=== PATIENT | male | born 1945 | race Caucasian/White ===

== ENCOUNTER → 2021-08-17 09:46 | Outpatient (BNVA) | payer MEDICARE, SELFPAY | PROVIDERS: PCP Family Medicine; Visit Provider Urology | DX: N40.1 Benign prostatic hyperplasia with lower urinary tract symptoms (principal); R35.1 Nocturia; R31.21 Asymptomatic microscopic hematuria; R39.12 Poor urinary stream | CPT/HCPCS: 51798; 99212 ==

== ENCOUNTER 2022-08-09 10:24 | Outpatient (REF) | payer MEDICARE, SELFPAY ==
[2022-08-09 14:21] LABS: Prostate Specific Antigen 0.78 ng/mL (<0.05-4.0)
== END 2022-08-09 10:25 | disposition home or self-care (01) ==
LOC: HO.10HDL 10:24
PROVIDERS: Visit Provider Urology
DX: Z12.5 Encounter for screening for malignant neoplasm of prostate (principal); N40.1 Benign prostatic hyperplasia with lower urinary tract symptoms; N13.8 Other obstructive and reflux uropathy
CPT/HCPCS: 36415; 84153

== ENCOUNTER → 2022-08-16 09:49 | Outpatient (BNVA) | payer MEDICARE, SELFPAY | PROVIDERS: PCP Family Medicine; Visit Provider Urology | DX: N40.1 Benign prostatic hyperplasia with lower urinary tract symptoms (principal); R39.12 Poor urinary stream; R31.29 Other microscopic hematuria | CPT/HCPCS: 99212 ==

== ENCOUNTER 2023-08-01 14:27 | Outpatient (REF) | payer MEDICARE, SELFPAY ==
[2023-08-01 16:41] LABS: Prostate Specific Antigen 1.11 ng/mL (<0.05-4.0)
== END 2023-08-01 14:28 | disposition home or self-care (01) ==
LOC: HO.LAB 14:27
PROVIDERS: PCP Family Medicine; Visit Provider Urology
DX: Z12.5 Encounter for screening for malignant neoplasm of prostate (principal); N40.0 Benign prostatic hyperplasia without lower urinary tract symptoms
CPT/HCPCS: 36415; 84153

== ENCOUNTER 2023-08-22 10:35 | Outpatient (AMB) | payer MEDICARE, SELFPAY ==
--- NOTE | 2023-08-22 10:51 | MHC.OFFVIS ---
Intake Intake Visit Reasons: 1Y PSA(set) Intake Note: pt here for followup meds - [facility]asteride [facility] - NKA PVR - 40 mL Allergies No Known Allergies Allergy (Verified 08/22/23 11:04) Medication List - Last Reconciled 08/22/23 by Brian Weir MD atorvastatin 40 mg PO DAILY calcium carbonate 600 mg PO BID cholecalciferol (vitamin D3) (Vitamin D3) 10 mcg PO DAILY diltiazem HCl 180 mg PO DAILY finasteride 5 mg PO DAILY 90 days metoprolol succinate ER 50 mg PO DAILY rivaroxaban (Xarelto) 15 mg PO DAILY spironolactone 25 mg PO DAILY HPI HPI Comments History of Present Illness Details Sohail ROLLE is a very pleasant male. He is a patient of Dr Alexandre. He is seen for the following urologic conditions. - Lower urinary tract symptoms - microscopic hematuria Prior HIWOT right base nodule PVR 40 cc Slight rise in PSA Continue 12 month review Lower Urinary Tract Symptoms:? Continues with improved urinary parameters Minimal nocturia Effective stream HIWOT 3+ ? Current visit is for?further evaluation of, predominate obstructive symptoms.? Current treatment includes?finasteride ? Prostate Symptom Score?Moderate (9-19), Bother 3.? Symptoms include?incomplete emptying, weak stream.? PSA?04/19 4.5, 08/21 1.3, 08/22 0.8, 08/23 1.1 ? Prostate volume?100 g on ultrasound.? Testing at next visit will include?bladder scan.? Microscopic Hematuria:? On combination therapy for prostate. Has noticed better stream. ? Microscopic hematuria was diagnosed during?routine UA.? They are here for the?Six months review of BPH.? Since the last visit the patient has?has not noticed gross hematuria, does not test positive for microscopic hematuria.? Relevant medical history for?anticoagulation therapy - xarelto.? Associated symptoms include? Radiographic imaging:?none completed.? Radiology report?09/17 US 100cc prostate.? Other investigations?09/17 , cytology, normal.? Therapeutic plan?follow in 12 months with appropriate investigations.? [facility] Medical History Hyperlipidemia TONI (obstructive sleep apnea) Chronic kidney disease Atrial fibrillation Urinary tract infection without hematuria Weak urinary stream Nocturia Enlarged prostate Asymptomatic microscopic hematuria Review of Systems Const Denies chills and Denies fever(s) Card Reports no additional complaints and Denies syncope Resp Denies cough GI Denies abdominal pain and Denies heartburn Reports as per HPI and Denies change in libido Neuro Denies syncope Psych Denies change in libido Endo Denies change in libido Physical Exam Const General: cooperative, healthy appearing, comfortable and no acute distress Orientation/consciousness: patient oriented x3 HEENT Face and sinus: Yes normal facial exam Mouth: moist mucous membranes Neck Neck: Yes normal visual inspection, Yes full ROM and Yes trachea midline Chest Chest palpation & inspection: normal inspection of the chest Resp Effort & Inspection: normal respiratory effort, able to speak in complete sentences and no respiratory distress GI Inspection: Yes normal to inspection Back/Spine/Pelvis Cervical Spine: normal cervical lordosis Thoracic/Lumbar Spine: thoracic and lumbar spine normal to inspection Skin General skin exam: no rashes or lesions noted Neuro General: patient oriented x3, gait normal, tone normal and moves all extremities Extrem General: Yes normal to inspection and Yes capillary refill normal Office Procedures Post Void Residual Post Residual Void Post Void Residual (PVR): 40 [id number] Void Residual by ultrasound Results AMB Urinalysis, Automated UA Leukoctes 0 Angelita/uL Last Edit by CHELSEA Boyd on 08/22/23 11:06 UA Nitrite Negative Last Edit by CHELSEA Boyd on 08/22/23 11:06 UA Urobilinogen 0.2 mg/dL Last Edit by CHELSEA Boyd on 08/22/23 11:06 UA Protein 15 mg/dL Last Edit by CHELSEA Boyd on 08/22/23 11:06 UA pH 5.5 Last Edit by CHELSEA Boyd on 08/22/23 11:06 UA Blood 0 Elian/uL Last Edit by Yfn JohanCHELSEA luna on 08/22/23 11:06 UA Specific [place] 1.025 Last Edit by Yfn Pagancheryl MANNYJuvenal on 08/22/23 11:06 UA Ketone Negative Last Edit by Yfn PradoCHELSEA on 08/22/23 11:06 UA Bilirubin 0 mg/dL Last Edit by DonnieCHELSEA Bran on 08/22/23 11:06 UA Glucose 0 mg/dL Last Edit by DonnieCHELSEA Bran on 08/22/23 11:06 Results Reviewed Results Reviewed: Laboratory Last Values Urine pH (Auto) 5.5 08/22/23 11:05 Specific [place] (Auto) 1.025 08/22/23 11:05 Urine Protein (Auto) 15 mg/dL 08/22/23 11:05 Glucose (UA)(Auto) 0 mg/dL 08/22/23 11:05 Urine Ketones (Auto) Negative 08/22/23 11:05 Urine Blood (Auto) 0 Elian/uL 08/22/23 11:05 Urine Nitrite (Auto) Negative 08/22/23 11:05 Urine Bilirubin (Auto) 0 mg/dL 08/22/23 11:05 Urine Urobilinogen (Auto) 0.2 mg/dL 08/22/23 11:05 Leukocyte Esterase (Auto) 0 Angelita/uL 08/22/23 11:05 Assessment & Plan Assessment & Plan (1) Bladder outlet obstruction: Code(s): N32.0 - Bladder-neck obstruction (2) Weak urinary stream: Code(s): R39.12 - Poor urinary stream (3) Nocturia: Code(s): R35.1 - Nocturia Plan Twelve month follow-up Orders: Orders AMB Urinalysis Automated Today Z13.9 - Encounter for screening, unspecified AMB Post Void Residual by ultrasound Today N39.8 - Other specified disorders of urinary system Prostate Specific Antigen 364 Days N32.0 - Bladder-neck obstruction Medications: Refilled finasteride 5 mg PO DAILY 90 tabs 3RF 90 days N32.0 - Bladder-neck obstruction Patient Instructions: Imaging studies, laboratory and physical exam results were discussed and reviewed in detail. No major barriers to patient understanding were identified. An opportunity to ask questions regarding the treatment plan was provided. All questions were answered. The patient expressed understanding and agreement with the above treatment plan. The patient is aware they should contact our office by phone for worsening of their current condition or the appearance of new urologic symptoms. Compliance is encouraged with any medications and followup testing that is ordered. It is a privilege to participate in the urologic care of your patient. If you have any questions or concerns regarding treatment for the above conditions, or other urologic issues, please do not hesitate to contact me. The office telephone contact is [phone]. This note is constructed using voice recognition software. While every effort has been made to ensure accuracy long haul truck driver errors may have been included. Yours sincerely, Dr Brian Weir MD, [facility] - Urology Providers of Expert, Compassionate Care for the Genitourinary System Coding Level of Care Code Est Pt Level 4 (85306) Diagnoses Bladder outlet obstruction N32.0 Weak urinary stream R39.12 Nocturia R35.1 CPT Codes Post Residual Void - PVR CPT Code: 78467-[id number] Void Residual by ultrasound ([id number])
== END 2023-08-22 11:13 | disposition home or self-care (01) ==
PROVIDERS: PCP Family Medicine; Visit Provider Urology
DX: N32.0 Bladder-neck obstruction (principal); R39.12 Poor urinary stream; R35.1 Nocturia; Z13.9 Encounter for screening, unspecified
CPT/HCPCS: 99214

== ENCOUNTER → 2023-08-22 10:35 | Outpatient (BNVA) | payer MEDICARE, SELFPAY | PROVIDERS: Visit Provider Urology | DX: N32.0 Bladder-neck obstruction (principal); R39.12 Poor urinary stream; R35.1 Nocturia; R31.29 Other microscopic hematuria | CPT/HCPCS: 51798; 81003; 99212 ==

== ENCOUNTER 2024-08-09 13:36 | Outpatient (REF) | payer MEDICARE, SELFPAY ==
[2024-08-09 17:27] LABS: Prostate Specific Antigen 1.35 ng/mL (<0.05-4.0)
== END 2024-08-09 13:37 | disposition home or self-care (01) ==
LOC: HO.LAB 13:36
PROVIDERS: PCP Family Medicine; Visit Provider Urology
DX: N32.0 Bladder-neck obstruction (principal); Z12.5 Encounter for screening for malignant neoplasm of prostate
CPT/HCPCS: 36415; 84153

== ENCOUNTER 2024-08-24 09:58 | Outpatient (AMB) | payer MEDICARE, SELFPAY ==
--- NOTE | 2024-08-24 10:01 | A.OFFVIS_ITS ---
Intake Visit Reasons: 1Y Follow Up-PSA(set) Intake Note: Patient is present for 1y f/u psa Urology Medication:Finasteride Antibiotic Allergy:none Blood Thinner:Xarelto Service Tech/Welder Required: No Allergies No Known Allergies Allergy (Verified 08/24/24 10:03) HPI Comments Details: Sohail ROLLE is a very pleasant male. He is a patient of Dr Alexandre. He is seen for the following urologic conditions. - Lower urinary tract symptoms - microscopic hematuria Prior HIWOT right base nodule - thrombosed vein likely PVR 40 cc Remains on finasteride for prostate BPH Minimal voiding issues Lower Urinary Tract Symptoms:? Continues with improved urinary parameters Minimal nocturia Effective stream HIWOT 3+ ? Current visit is for?further evaluation of, predominate obstructive symptoms.? Current treatment includes?finasteride ? Prostate Symptom Score?Moderate (9-19), Bother 3.? Symptoms include?incomplete emptying, weak stream.? PSA?04/19 4.5, 08/21 1.3, 08/22 0.8, 08/23 1.1, 08/24 1.4 ? Prostate volume?100 g on ultrasound.? Testing at next visit will include?bladder scan.? Microscopic Hematuria:? On combination therapy for prostate. Has noticed better stream. ? Microscopic hematuria was diagnosed during?routine UA.? They are here for the?Six months review of BPH.? Since the last visit the patient has?has not noticed gross hematuria, does not test positive for microscopic hematuria.? Relevant medical history for?anticoagulation therapy - xarelto.? Associated symptoms include? Radiographic imaging:?none completed.? Radiology report?09/17 US 100cc prostate.? Other investigations?09/17 , cytology, normal.? Therapeutic plan?follow in 12 months with appropriate investigations.? [facility] Medical History Hyperlipidemia TONI (obstructive sleep apnea) Chronic kidney disease Atrial fibrillation Urinary tract infection without hematuria Weak urinary stream Nocturia Enlarged prostate Asymptomatic microscopic hematuria Review of Systems Const Denies chills and Denies fever(s) Card Reports no additional complaints and Denies syncope Resp Denies cough GI Denies abdominal pain and Denies heartburn Reports as per HPI and Denies change in libido Neuro Denies syncope Psych Denies change in libido Endo Denies change in libido Physical Exam Const General: cooperative, healthy appearing, comfortable and no acute distress Orientation/consciousness: patient oriented x3 HEENT Face and sinus: Yes normal facial exam Mouth: moist mucous membranes Neck Neck: Yes normal visual inspection, Yes full ROM and Yes trachea midline Chest Chest palpation & inspection: normal inspection of the chest Resp Effort & Inspection: normal respiratory effort, able to speak in complete sentences and no respiratory distress GI Inspection: Yes normal to inspection Back/Spine/Pelvis Cervical Spine: normal cervical lordosis Thoracic/Lumbar Spine: thoracic and lumbar spine normal to inspection Skin General skin exam: no rashes or lesions noted Neuro General: patient oriented x3, gait normal, tone normal and moves all extremities Extrem General: Yes normal to inspection and Yes capillary refill normal Results AMB Urinalysis, Automated UA Leukoctes 0 Angelita/uL Last Edit by YENNI King on 08/24/24 10:14 UA Nitrite Negative Last Edit by YENNI King on 08/24/24 10:14 UA Urobilinogen 0.2 mg/dL Last Edit by YENNI King on 08/24/24 10:1 4 UA Protein 0 mg/dL Last Edit by YENNI King on 08/24/24 10:14 UA pH 6.0 Last Edit by YENNI King on 08/24/24 10:14 UA Blood 0 Elian/uL Last Edit by YENNI King on 08/24/24 10:14 UA Specific [place] 1.025 Last Edit by YENNI King on 08/24/24 10: 14 UA Ketone Negative Last Edit by YENNI King on 08/24/24 10:14 UA Bilirubin 0 mg/dL Last Edit by YENNI King on 08/24/24 10:14 UA Glucose 0 mg/dL Last Edit by YENNI King on 08/24/24 10:14 Results Reviewed Results Reviewed: Laboratory Last Values Urine pH (Auto) 6.0 08/24/24 10:13 Specific [place] (Auto) 1.025 08/24/24 10:13 Urine Protein (Auto) 0 mg/dL 08/24/24 10:13 Glucose (UA)(Auto) 0 mg/dL 08/24/24 10:13 Urine Ketones (Auto) Negative 08/24/24 10:13 Urine Blood (Auto) 0 Elian/uL 08/24/24 10:13 Urine Nitrite (Auto) Negative 08/24/24 10:13 Urine Bilirubin (Auto) 0 mg/dL 08/24/24 10:13 Urine Urobilinogen (Auto) 0.2 mg/dL 08/24/24 10:13 Leukocyte Esterase (Auto) 0 Angelita/uL 08/24/24 10:13 Assessment & Plan Assessment & Plan (1) Bladder outlet obstruction: Code(s): N32.0 - Bladder-neck obstruction Category: Medical Plan Twelve month follow-up Orders: Orders AMB Urinalysis Automated Today Z13.9 - Encounter for screening, unspecified Medications: Refilled finasteride 5 mg PO DAILY 90 days 90 tabs 3RF N32.0 - Bladder-neck obstruction Patient Instructions: Imaging studies, laboratory and physical exam results were discussed and reviewed in detail. No major barriers to patient understanding were identified. An opportunity to ask questions regarding the treatment plan was provided. All questions were answered. The patient expressed understanding and agreement with the above treatment plan. The patient is aware they should contact our office by phone for worsening of their current condition or the appearance of new urologic symptoms. Compliance is encouraged with any medications and followup testing that is ordered. It is a privilege to participate in the urologic care of your patient. If you have any questions or concerns regarding treatment for the above conditions, or other urologic issues, please do not hesitate to contact me. The office telephone contact is [phone]. This note is constructed using voice recognition software. While every effort has been made to ensure accuracy metalizer field operation errors may have been included. Yours sincerely, Dr Brian Weir MD, [facility] - Urology Providers of Expert, Compassionate Care for the Genitourinary System Coding Level of Care Code Est Pt Level 4 (80439) Diagnoses Bladder outlet obstruction N32.0
== END 2024-08-24 10:31 | disposition home or self-care (01) ==
PROVIDERS: PCP Family Medicine; Visit Provider Urology
DX: N32.0 Bladder-neck obstruction (principal); Z13.9 Encounter for screening, unspecified
CPT/HCPCS: 99214

== ENCOUNTER → 2024-08-24 09:58 | Outpatient (BNVA) | payer MEDICARE, SELFPAY | PROVIDERS: PCP Family Medicine; Visit Provider Urology | DX: N32.0 Bladder-neck obstruction (principal) | CPT/HCPCS: 81003; 99212 ==